=== PATIENT | male | born 1990 | race Caucasian/White ===

== ENCOUNTER → 2023-12-25 15:15 | Outpatient (REF) | payer OTHER, SELFPAY | LOC: HWRAD 15:15 | PROVIDERS: ATTENDING PHYSICIAN Internal Medicine | DX: R07.81 Pleurodynia (principal) | CPT/HCPCS: 71046 ==

== ENCOUNTER → 2024-02-16 06:35 | Day surgery (SDC) | payer OTHER, SELFPAY | LOC: GI 06:35 | PROVIDERS: ATTENDING PHYSICIAN Internal Medicine | DX: K44.9 Diaphragmatic hernia without obstruction or gangrene (principal); K22.89 Other specified disease of esophagus; K22.2 Esophageal obstruction; K29.50 Unspecified chronic gastritis without bleeding; K20.0 Eosinophilic esophagitis | CPT/HCPCS: 43249; 43239; 88305; 88342 ==

== ENCOUNTER 2024-05-07 17:22 | Emergency (ER) | payer OTHER, SELFPAY ==
[2024-05-07 17:24] VITALS: BP 98/69
[2024-05-07] MEDS: DILAUDID 2 MG IM (18:01)
--- NOTE | 2024-05-07 19:05 | ED.GENMED ---
History of Present Illness
General
Chief Complaint: Musculo-Skeletal Complaint
Time Seen by Provider: 05/07/24 17:45
History of Present Illness
History of Present Illness:
33-year-old male presents the emergency department for evaluation of a suspected right shoulder dislocation. Has a history of recurrent right shoulder dislocation, was attempting to throw his kids in the air while playing in the pool. Obvious
sulcus sign of the right shoulder is noted
Past History
Past History
ED Past Medical History: None
ED Past Surgical History: Orthopedic
Social History
Tobacco: Non-smoker
Alcohol: None
Drug: None
Personal:
Living: with family
Employment: Employed
Review of Systems
Review of Systems
Allergies reviewed?: Yes
All Other Systems: ROS reviewed and negative except as documented in HPI and ROS
Phy Exam
Physical Exam
Physical Exam:
GEN: Well appearing, NAD, WDWN
HEENT: Oral mucosa moist, no scleral icterus
Cardiac: Regular rate
Lung: No respiratory distress, no tachypnea
MSK: Limited right shoulder range of motion with an obvious sulcus sign indicating a likely dislocation
Skin: Good color, no pallor or jaundice, no rashes
Neuro: AO x3, moves all extremities freely
Psych: Calm, cooperative
Course
Orders/Labs/Results
Orders:
Orders
05/07/24 17:28
CR Shoulder, Trauma - Right Urgent
Reason For Exam: pain injury
05/07/24 17:50
HYDROmorphone [Dilaudid] 2 mg IM NOW STA
05/07/24 18:11
CR Shoulder - Right 1 View Urgent
Comment:
Reason For Exam: post reduction
Vital Signs
Initial and Last Documented VS:
Initial Vital Signs
Temp Pulse Resp BP Pulse Ox
98.1 F 97 16 98/69 97
05/07/24 17:24 05/07/24 17:24 05/07/24 17:24 05/07/24 17:24 05/07/24 17:24
Last Documented Vital Signs
Temp Pulse Resp BP Pulse Ox
98.1 F 97 16 98/69 97
05/07/24 17:24 05/07/24 17:24 05/07/24 17:24 05/07/24 17:24 05/07/24 17:24
Procedures
Joint/Fracture Reduction
Right Shoulder:
Indication for procedure:: Glenohumeral dislocation
Procedure completed by: David Cotton PA-C
Consent form signed: Yes
Joint reduced: without anesthesia
Injury was: closed
Further treatement: needs re-check only
Post reduction exam: stable
Capillary Refill: normal
Normal distal neurovascular exam?: Yes
MDM/Problems Addressed
MDM/Problems Addressed:
Patient was given analgesics and shoulder was reduced at the bedside without need for conscious sedation. He is placed in a sling and discussed supportive care, recommend outpatient orthopedic follow-up given the recurrence of this injury
*Critical Care Note
Total Time (30-74mins, 75-104mins- exclusive of procedures): Not Applicable
ED Attending Note
-
Portions of this chart may have been created with voice recognition software.� Occasional wrong word or��sound alike� substitutions may have occurred due to the inherent limitations of voice recognition software.
Discharge Plan
Departure
Patient Disposition: Home (Routine Discharge)
Date of Disposition: 05/07/24
Time of Disposition: 19:06
Patient with high blood pressure during this ER visit?: No
Discharge Problem:
Anterior dislocation of right shoulder
Instructions: Shoulder Dislocation (DC)
Prescriptions:
No Action
cetirizine [Zyrtec] 10 mg Tablet
10 mg PO DAILY
venlafaxine 150 mg Capsule,Extended Release 24hr
150 mg PO HS
fluticasone propionate [Flonase Allergy Relief] 50 mcg/actuation [place],Suspension
1 spray INTRANASAL HS
esomeprazole magnesium 20 mg Capsule,Delayed Release(Dr/Ec)
20 mg PO DAILY
hydrocodone-acetaminophen 5-325 mg tablet
1 - 2 tab PO Q4HPRN PRN (Reason: pain) Qty: 10 0RF
Rx Instructions:
OK to substitute 5/300 mg
cephalexin [cephalexin] 500 mg capsule
500 mg PO TID 2 Days Qty: 6 0RF
Referrals:
Ok Mcdonald DO [Family Provider] -
Presley Puente MD [Active] -
Interventions
Interventions:
*Risk Screen - Suicide Last Done: 05/07/24 17:54
*General Assessment Last Done: 05/07/24 17:54
ED- Fall Risk Assessment Last Done: 05/07/24 17:55
*ED COVID-19 Vaccine History Last Done: 05/07/24 17:54
*Nursing Disposition Last Done: 05/07/24 19:09
Discharge Date and Time
Discharge Date/Time: 05/07/24 19:10
Print Language: [id number]
== END 2024-05-07 19:10 | disposition home or self-care (01) ==
LOC: EMR 17:22
PROVIDERS: EMERGENCY PHYSICIAN Student in an Organized Health Care Education/Training Program; FAMILY PHYSICIAN Internal Medicine
DX: M24.411 Recurrent dislocation, right shoulder (principal); Z91.048 Other nonmedicinal substance allergy status
CPT/HCPCS: 99284; 23650; 96372; 73020; 73030